=== PATIENT | female | born 1990 | race African-American/Black ===

== ENCOUNTER → 2020-12-12 | Outpatient (CLI) | payer OTHER | LOC: M.RAD 09:12 | PROVIDERS: ATTEND Family Medicine | DX: Z12.31 Encounter for screening mammogram for malignant neoplasm of breast (principal) ==

== ENCOUNTER 2021-03-28 01:16 | Emergency (ER) | payer OTHER ==
[~2021-03-28] VITALS: Ht 167.6 cm; Wt 81.2 kg
[2021-03-28] MEDS ORDERED: SINGULAIR 10 MG10 MG PO (01:29)
[2021-03-28] MEDS ORDERED: PROAIR HFA8.5 GM INH (01:29)
[2021-03-28] MEDS ORDERED: PRENATAL VITAM1 EAC9 PO (01:30)
[2021-03-28] MEDS ORDERED: SYMBICORT160 MCG/4. INH (01:30)
[2021-03-28 02:01] LABS: ABSOLUTE BASOPHILS 0.1 thou/uL (0.0-0.2); ABSOLUTE EOSINOPHILS 0.7 thou/uL (0.0-0.7); ABSOLUTE LYMPHOCYTES 1.8 thou/uL (0.8-5.3); ABSOLUTE MONOCYTES 0.5 thou/uL (0.0-1.2); ABSOLUTE NEUTROPHILS 4.8 thou/uL (1.6-8.1); BASOPHILS 0.8 %; EOSINOPHILS 8.8 %; HEMATOCRIT 36.7 % (37.0-47.0); HEMOGLOBIN 12.4 gm/dL (12.0-15.0); LYMPHOCYTES 23.5 %; MCH 29.4 pg (26.0-34.0); MCHC 33.7 g/dL (28.0-37.0); MCV 87.1 fL (80.0-100.0); MONOCYTES 6.4 %; MPV 9.3 fl. (7.2-11.1); NUCLEATED RBCS 0 /100WBC; PLATELET COUNT* 189 thou/uL (150-400); POLYS 60.5 %; RBC 4.22 mil/uL (4.20-5.00); RDW-CV 12.6 % (10.5-14.5); WBC 7.9 thou/uL (4.0-11.0)
[2021-03-28 02:06] LABS: CALCIUM 8.9 mg/dL (8.5-10.1); CREATININE 0.7 mg/dL (0.6-1.3); POTASSIUM 3.7 mmol/L (3.5-5.1)
[2021-03-28 02:10] LABS: ALBUMIN 4.1 g/dL (3.4-5.0); TOTAL BILIRUBIN 0.8 mg/dL (<0.1-1.0); TOTAL PROTEIN 7.3 g/dL (6.4-8.2)
[2021-03-28 02:31] LABS: URINE BILIRUBIN NEGATIVE (Negative); URINE BLOOD NEGATIVE (Negative); URINE COLOR YELLOW; URINE GLUCOSE-RANDOM NEGATIVE (Negative); URINE KETONES NEGATIVE (Negative); URINE LEUKOCYTES-REFLEX 1+ (Negative); URINE NITRITE-REFLEX NEGATIVE (Negative); URINE PROTEIN NEGATIVE (Negative); URINE SPECIFIC GRAVITY 1.015 (1.005-1.030); URINE UROBILINOGEN 0.2 E.U./dl (0.2-1.0)
[2021-03-28 02:32] LABS: URINE CLARITY SL HAZY
[2021-03-28 02:53] LABS: BACTERIA-REFLEX >30 Many /HPF (None Seen); CASTS None Seen /LPF (None Seen); MUCUS 4-6 Moderate strn/LPF (None Seen); SQUAMOUS >10 Many /LPF (0-3); TRANSITIONAL EPITHEL CELL 0-3 Few /LPF (None Seen); URINE RBC 3-10 Few /HPF (0-2); URINE WBC-REFLEX 6-15 Few /HPF (0-5)
[2021-03-28 02:54] LABS: CRYSTALS None Seen /LPF (None Seen)
[2021-03-28 05:42] VITALS: BP 113/57
== END 2021-03-28 05:38 | disposition home or self-care (01) ==
LOC: M.ERS 01:16
PROVIDERS: Personal Emergency Response Attendant
DX: O26.891 Other specified pregnancy related conditions, first trimester (principal); K59.4 Anal spasm; K64.9 Unspecified hemorrhoids; O99.511 Diseases of the respiratory system complicating pregnancy, first trimester; J45.909 Unspecified asthma, uncomplicated; Z79.899 Other long term (current) drug therapy; Z88.8 Allergy status to other drugs, medicaments and biological substances; Z3A.01 Less than 8 weeks gestation of pregnancy